=== PATIENT | female | born 1985 | race African-American/Black ===

== ENCOUNTER 2025-07-20 20:50 | Emergency (ER) | payer MEDICAID ==
[~2025-07-20] VITALS: Ht 154.9 cm; Wt 44.2 kg
[2025-07-20 21:09] VITALS: TEMP 36.8
[2025-07-20 23:43] VITALS: BP 99/75; PULSE 77; RESP 15; O2SAT 97
== END 2025-07-20 23:47 | disposition home or self-care (01) ==
LOC: ER 20:50
DX: Z00.00 Encounter for general adult medical examination without abnormal findings (principal); Z88.0 Allergy status to penicillin
CPT/HCPCS: 99282